=== PATIENT | male | born 1980 | race Caucasian/White ===

== ENCOUNTER 2016-06-22 08:06 | Observation (INO) | payer SELFPAY ==
[~2016-06-22] VITALS: Ht 180.3 cm; Wt 77.3 kg
[2016-06-22 08:11] VITALS: BP 146/92; PULSE 117; RESP 14; O2SAT 97
[2016-06-22] MEDS ORDERED: 0.9% Sodium Chloride 1,000 ML IV SCH (08:45)
[2016-06-22] MEDS ORDERED: Ondansetron 2 mg/mL 2 mL Inj IVPUSH ONE ×2 (08:45→12:10)
[2016-06-22 08:59] VITALS: PULSE 104; RESP 20; O2SAT 94
[2016-06-22 09:12] LABS: BASOPHILS % (AUTO) 0.2 % (0-3); EOSINOPHILS % (AUTO) 0.2 % (0-5); MONOCYTES % (AUTO) 8.6 % (4-12); Mean Corpuscular Hemoglobin 27.5 pg (27.0-35.0); Mean Corpuscular Volume 84.2 fL (81-100); NEUTROPHILS % (AUTO) 45.6 % (40-74); Platelet Count 261 bil/L (150-400)
--- NOTE | 2016-06-22 09:15 | ED.REPORT ---
HPI-Abd Pain M Under 38 Date of Service Jun 22, 2016 ED Provider: Slava Perez MD This is a 36 year old male with a history of inguinal hernia presenting to the ED with acute epigastric abdominal pain that began 2 days ago. Pt reports sudden -onset abdominal pain while in [place]. He soon developed nausea associated with hematemesis described as streaking. Also reports diarrhea with blood streaking. Pt was admitted to a hospital in [place] for pain and nausea control and returned to the [facility] today morning. He was not given antibiotics during his stay there. Hematemesis and diarrhea persists with 3-4 episodes of hematemesis per day. Last PO intake was half of a sandwich yesterday. He adds that the sandwich had peanuts in it which he is allergic to. Reports some mild itching but denies tongue swelling, throat swelling, or difficulty breathing. Denies fever, chills, dysuria, or constipation at this time. Nursing Notes Stated Complaint: VOMITING BLOOD/FOOD ALLERGY Chief Complaint: Male Abdominal Pain Nursing Notes Reviewed: Yes Allergies: Coded Allergies: Contrast Media (Verified Allergy, Mild, itching, 06/22/16) prochlorperazine (Verified Adverse Reaction, Intermediate, dystonia, ) No Active Prescriptions or Reported Meds General Time Seen by MD: 09:12 Chief Complaint Abdominal pain Hx Obtained From: Patient Arrived By: Walk-in Sudden in Onset?: Yes Onset Occurred: 2 days ago Symptom Duration: Since onset Location: : Diffuse: Epigastric Severity: Current: Moderate Pertinent Negative: Pt denies other symptoms Recent Healthcare: Recent doctor visit Similar Sx Previous: No Past Medical History Past Medical History Hx inguinal hernia Past Surgical History Inguinal hernia repair Ambulatory Status Independent Review of Systems Constitutional: Denies: Chills, Fever GI: Reports: Abdominal pain, Diarrhea, Hematemesis, Hematochezia, Nausea, Vomiting Male: Denies Dysuria Complete sys rev & neg: except as marked. Neurologic: Denies: Headache Physical Exam Initial Vital Signs Vital Signs (First) Date Time Temp Pulse Resp B/P Pulse Ox O2 Delivery O2 Flow Rate FiO2 06/22/16 08:11 36.1 117 14 146/92 97 Room Air Initial VS: Reviewed Head / Eyes: Atraumatic, Normocephalic, PERRL ENT: Mucous membranes moist, Conjunctiva normal, No scleral icterus Neck: Supple, Non-tender, Full range of motion Extremities: Vascular intact, Neuro intact, No swelling, No tenderness Skin: Warm, Dry, No cyanosis Neurologic: Alert, Oriented, Nonfocal Psychiatric: Mood/affect normal, Behavior normal, Normal thought content General/Constitutional: Awake, Alert Respiratory / Chest: Breath sounds NL, Breath sounds = bilat, No respiratory distress, No rales, No rhonchi, No wheezing, No stridor Cardiovascular: Heart rate NL, Regular rhythm, Heart sounds NL, Peripheral circulation NL Abdomen: Soft, BS normoactive Tenderness/Guarding/Rebound: Positive: Tender diffuse Back: Inspection NL, Non-tender, No CVA tenderness Rectum / Perineum: No gross blood, No hemorrhoids Mildly guaiac positive. Interpretation & Diagnostics CT ABD PELVIS IMPRESSION: 1. No CT evidence of appendicitis. Source of right lower quadrant pain is not seen. 2. Scattered very small calcifications and faint calcifications involving the collecting system and renal parenchyma bilaterally, but without associated hydronephrosis or hydroureter. Dictated by: Lane Machado M.D. on 06/22/2016 at 10:00 Approved by: Lane Machado M.D. on 06/22/2016 at 10:00 Lab Results Interpretation Result Diagram: 06/22/16 0835 06/22/16 0835 Test 06/22/16 08:35 06/22/16 09:50 06/22/16 10:25 White Blood Count 4.7th/mm3 (3.8-10.1) Red Blood Count 4.80mil/mm3 (4.40-5.80) Hemoglobin 13.2g/dL (13.8-17.2) Hematocrit 40.4% (41.0-50.0) Mean Corpuscular Volume 84.2fL (81-100) Mean Corpuscular Hemoglobin 27.5pg (27.0-35.0) Mean Corpuscular Hemoglobin Concent 32.7% (32.0-37.0) Red Cell Distribution Width 13.2% (12.3-15.4) Platelet Count 261bil/L (150-400) Neutrophils (%) (Auto) 45.6% (40-74) Lymphocytes (%) (Auto) 45.0% (14-46) Monocytes (%) (Auto) 8.6% (4-12) Eosinophils (%) (Auto) 0.2% (0-5) Basophils (%) (Auto) 0.2% (0-3) Sodium Level 142mEq/L (134-144) Potassium Level 3.7mEq/L (3.5-5.2) Chloride Level 104mEq/L (97-108) Carbon Dioxide Level 23mmol/L (18-29) Blood Urea Nitrogen 15mg/dL (6-20) Creatinine 0.82mg/dL (0.76-1.27) Estimat Glomerular Filtration Rate 112mL/min (>59) Glucose Level 90mg/dL (60-99) Calcium Level 8.8mg/dL (8.5-10.1) Magnesium Level 2.1mg/dL (1.6-2.6) Total Bilirubin 0.3mg/dL (0.0-1.2) Aspartate Amino Transf (AST/SGOT) 12U/L (0-50) Alanine Aminotransferase (ALT/SGPT) 6U/L (0-44) Alkaline Phosphatase 51U/L (25-150) Total Protein 7.1g/dL (6.4-8.4) Albumin 3.9g/dL (3.4-5.0) Lipase 16U/L (13-60) Lactic Acid Level 1.8mmol/L (0.4-2.0) Urine Color Straw (YELLOW) Urine Appearance Hazy (CLEAR,HAZY) Urine pH 6.0 (5.0-8.0) Urine Specific [place] 1.015 (1.003-1.035) Urine Protein Negativemg/dL (NEG,TRACE) Urine Glucose (UA) Negativemg/dL (NEGATIVE) Urine Ketones Negativemg/dL (NEGATIVE) Urine Occult Blood Negative (NEGATIVE) Urine Nitrite Negative (NEGATIVE) Urine Bilirubin Negative (NEGATIVE) Urine Urobilinogen Normalmg/dL (NORMAL) Urine Leukocyte Esterase Negative (NEGATIVE) Urine RBC 0-2/hpf (0-2) Urine WBC 0-5/hpf (0-5) Urine Epithelial Cells Occasional/hpf (NONE-MOD) Urine Crystals None seen (NONE SEEN) Urine Bacteria None/hpf (NONE-FEW) Urine Hyaline Casts None/lpf (NONE) Urine Granular Casts None seen (NONE SEEN) Urine Waxy Casts None seen (NONE SEEN) Urine Red Blood Cell Casts None seen (NONE SEEN) Urine White Blood Cell Casts None seen (NONE SEEN) Urine Mucus None seen (None Seen) Urine Trichomonas None seen (NONE SEEN) Urine Yeast None (NONE SEEN) Urinalysis Comment None Urine Culture Reflexed Not indicated X-Ray Chest Interpretation Chest Xray Interpretation: IMPRESSION: No acute cardiopulmonary disease process. Dictated by: Sobia Herman MD, PhD on 06/22/2016 at 9:48 Approved by: Sobia Herman MD, PhD on 06/22/2016 at 9:48 Re-Eval/Medical Decision Med Decision/Clinical Course 36-year-old male presenting complaining of hematemesis and diarrhea with blood times several days after a trip to [place]. Also complaining of right lower quadrant pain times several days. He was hospitalized in [place] with pain control and no definitive diagnosis. Return state complaining of right lower quadrant pain with hematemesis and diarrhea as above. Vital signs stable. Labs unremarkable. Patient with significant right lower quadrant pain with CT showing no evidence of appendicitis. He was giving numerous doses of Dilaudid with minimal improvement in pain control. He reported some episodes of emesis while we were not the room but none were witnessed. He was guaiac positive. Stool studies pending. Patient with abdominal pain refractory to pain medications and emesis refractory to antiemetics. Will be admitted for pain control. Discussed with hospitalist, Dr Eldridge, who accepts admission. Re-Evaluation/Progress #1: Time of Eval: 11:57 Re-Evaluation/Progress Note: Pt re-checked. No episodes of diarrhea or emesis in the ED. Nausea is improved with Zofran but is still present. Pain persists and is unchanged. Discussed normal lab and imaging results. Plan for re-evaluation after pain and anti-nausea medication. Re-Evaluation/Progress #2: Time of Eval: 13:13 Re-Evaluation/Progress Note: Unable to tolerate PO, plan for admission. Consultation #1: Referral / Consult Name: Letty Ervin MD Call Returned at: 12:55 Market Development Specialist: Agrees with eval, Agrees with plan Note: Consult with GI Consultation #2: Referral / Consult Name: Uriel Eldridge MD Consulted With: Hospitalist Call Returned at: 13:44 Market Development Specialist: Accepts admit Counseled Regarding: Diagnosis, Lab results, Need for follow-up, Need for admission Patient Discharge & Departure Primary Impression: Generalized abdominal pain Additional Impression: Vomiting Vomiting type: unspecified Vomiting Intractability: non-intractable Nausea presence: with nausea Qualified Code: R11.2 - Nausea with vomiting, unspecified Disposition: ADMITTED TO HOSPITAL Discharge Condition All VS Reviewed: Yes Condition: Stable Patient Instructions: Gastroenteritis (ED) Scribe Attestation Portions of this note were transcribed by Melissa Machado. I, Dr. Perez personally performed the history, physical exam and medical decision-making; I reviewed and confirmed the accuracy of the information in the transcribed note. Signed by: Melissa Machado. 06/22/2015, 0930. Slava Perez MD Jun 22, 2016 09:15 MELISSA MACHADO Jun 22, 2016 09:27
[2016-06-22] MEDS ORDERED: 0.9% Sodium Chloride 1,000 ML IV ONE ×2 (09:24→12:10)
[2016-06-22] MEDS ORDERED: Ondansetron 2 mg/mL 2 mL Inj IVPUSH PRN (09:25)
[2016-06-22] MEDS: HYDROmorphone 1 mg/mL Inj IVPUSH PRN ×6 (09:32→22:58)
--- NOTE | 2016-06-22 09:50 | DRSVH ---
PROCEDURE: X-RAY CHEST ONE VIEW, PORTABLE ([id number]) INDICATIONS: cough TECHNIQUE: One view of the chest was acquired. COMPARISON: None. FINDINGS: Surgical changes and devices: None. Lungs and pleura: No pleural effusions or pneumothorax. Lungs are clear. Mediastinum: Mediastinal contours appear normal. Heart size is normal. Bones and chest wall: No suspicious bony lesions. Overlying soft tissues appear unremarkable. IMPRESSION: No acute cardiopulmonary disease process. Dictated by: Sobia Herman MD, PhD on 06/22/2016 at 9:48 Approved by: Sobia Herman MD, PhD on 06/22/2016 at 9:48
--- NOTE | 2016-06-22 10:04 | DRSVH ---
PROCEDURE: CT ABDOMEN AND PELVIS WITHOUT CONTRAST ([id number]) INDICATIONS: RLQ pain TECHNIQUE: Noncontrast 5 mm thick sections acquired from the diaphragms to the symphysis. 5 mm coronal and sagi ttal reformats were then performed. For radiation dose reduction, the following was used: automated exposure control, adjustment of mA and/or kV according to patient size. Heart history of allergic r eaction to contrast, and the study is performed without. COMPARISON: None. FINDINGS: Image quality: Excellent. ABDOMEN: Lung bases: Lung bases are clear. Heart size is normal. Solid organs: Liver and spleen are normal in size. Gallbladder appears normal. Pancreas is normal in contours. No adrenal nodules. Kidneys are normal in size, without hydronephrosis but there is a pattern of scattered small faint calcifications within the collecting systems and medullary margins o f each kidney, without associated hydronephrosis, as an incidental finding. Peritoneum and bowel: Unenhanced bowel loops demonstrate normal wall thickness and caliber. No free fluid or air. Nodes and vessels: No retroperitoneal or mesenteric adenopathy by size criteria. Aorta and inferior vena cava are normal in caliber. Miscellaneous: No ventral hernias. PELVIS: Genitourinary: Bladder wall thickness is normal. Miscellaneous: No inguinal hernias or adenopathy but there is evidence of prior left herniorrhaphy b y the pattern of surgical clips present.. No CT evidence of appendicitis. Bones: No suspicious bony lesions. No vertebral body compression fractures. IMPRESSION: 1. No CT evidence of appendicitis. Source of right lower quadrant pain is not seen. 2. Scattered very small calcifications and faint calcifications involving the collecting system and renal parenchyma bilaterally, but without associated hydronephrosis or hydroureter. Dictated by: Lane Machado M.D. on 06/22/2016 at 10:00 Approved by: Lane Machado M.D. on 06/22/2016 at 10:00
[2016-06-22] MEDS ORDERED: MethylprednisoLONE Sodium Succinate 62.5 mg/mL 2 mL Inj IVPUSH ONE (10:25)
[2016-06-22 11:16] LABS: APPEARANCE,URINE HAZY (CLEAR,HAZY); COLOR,URINE STRAW (YELLOW); OCCULT BLOOD,URINE NEGATIVE (NEGATIVE); UROBILINOGEN,URINE NORMAL (NORMAL)
[2016-06-22] MEDS ORDERED: HYDROmorphone 1 mg/mL Inj IVPUSH ONE (12:10)
[2016-06-22 13:13] VITALS: BP 141/79; PULSE 100; O2SAT 96
[2016-06-22] MEDS ORDERED: Alum-Mag Hydrox-Simeth 30 mL Suspension PO PRN (14:00)
[2016-06-22 16:28] VITALS: BP 128/57; PULSE 75; O2SAT 94
[2016-06-22] MEDS: 0.9% Sodium Chloride 1,000 ML IV SCH (16:50)
[2016-06-22] MEDS ORDERED: Polyethylene Glycol (PEG) 17 Gm Powder PO PRN (16:50)
[2016-06-22] MEDS: Sucralfate 100 mg/mL 10 mL Suspension PO SCH ×2 (17:00→22:59)
[2016-06-22] MEDS ORDERED: SERT50TA PO (17:41)
[2016-06-22] MEDS: HYDROcodone-APAP 5-325 mg Tablet PO PRN (18:46)
--- NOTE | 2016-06-22 19:27 | NUR ---
Arrival to floor Admission assessment and med rec completed in ER by admit RN. Pt arrived from ER via gurney, transferred to bed independently. White board updated with plan and discussed including fluids and NPO status upon introduction with this RN. Pt reported nausea and pain and requested to know what medications he was allowed and when, RN excused self from room to retrieve IV fluids and would come back with that information. Retuned to room with fluids, Zofran and Vicodin in hand. Discussed meds from eMAR that were available (sucralfate, zofran, morphine, vicodin), pt demanding to talk with the doctor again because "we are not allowed to let him be in so much pain" and "I just want someone to tell me 'I'm sorry you feel bad, let me help you". Pt unreceptive to RNs recall of the last 15mins. Commented "mother works at [employer] and when she listens on speakerphone when everybody talks to me she can't believe what we say". Initiated IVF and admin oral Vicodin with small amount ice water d/t NPO status. While initiating fluids pt remained in RNs peripheral vision and pt lifted hand toward opposite wall with pointer finger out and thumb up in a finger gun pose and made a total of 3 pew pew noises with 3 shanks of the hand while saying unfriendly remarks about all of the staff here. RN asked pt if I should be reporting "what you just did?" Pt claimed "you weren't looking, you didn't see anything" then "I was singing and I can sing anywhere I want". Pt finished drinking the water to take his meds "You couldn't even put water in the cup" Reminded pt we talked about his NPO status, pt denied recollection. Attempted to throw cup with ice into trash, missed and it landed on floor, "oops, I missed". RN exited room at that time.
[2016-06-22] MEDS ORDERED: ALPR2TAB6 PO (20:27)
[2016-06-22] MEDS: Ondansetron 2 mg/mL 2 mL Inj IVPUSH PRN (20:52)
[2016-06-22] MEDS: metroNIDAZOLE Inj 500 MG in IV Premix 1 EACH IV SCH (20:53)
[2016-06-22 21:51] VITALS: BP 128/77; PULSE 76; RESP 20; O2SAT 96
--- NOTE | 2016-06-22 21:54 | NUR ---
Patient behavior Entered patient's room at beginning of shift, around 1999. Patient was calm, but verbally expressed frustration with "lack of care" he has experienced with this admit, but mostly when he was in the ED. Actively listened to patient for about 20 minutes, discussed medications that worked and ones that are ineffective. Apologized to patient for the experience he had earlier today and for the pain he is having. Called MD and discussed medications, some were changed. Updated patient on new orders. Patient has been appreciative of interventions and medication changes. Medication schedule written on board for patient to be informed. Intentional rounding to be performed overnight.
[2016-06-23] MEDS: Ondansetron 2 mg/mL 2 mL Inj IVPUSH PRN ×4 (00:58→22:30)
[2016-06-23] MEDS: HYDROmorphone 1 mg/mL Inj IVPUSH PRN ×11 (00:58→22:30)
[2016-06-23] MEDS: 0.9% Sodium Chloride 1,000 ML IV SCH ×3 (04:29→22:50)
[2016-06-23 04:48] VITALS: BP 129/77; PULSE 54; RESP 18; O2SAT 96
[2016-06-23 07:05] LABS: BASOPHILS % (AUTO) 0 % (0-3); EOSINOPHILS % (AUTO) 0 % (0-5); MONOCYTES % (AUTO) 10.3 % (4-12); Mean Corpuscular Hemoglobin 27.1 pg (27.0-35.0); Mean Corpuscular Volume 83.5 fL (81-100); NEUTROPHILS % (AUTO) 65.9 % (40-74); Platelet Count 322 bil/L (150-400)
--- NOTE | 2016-06-23 07:26 | PCM.HPMED ---
Subjective Date of Service Jun 22, 2016 Primary Provider: Admitting Physician: Primary Care Physician: Zain Attending Physician: Chief Complaint: abdominal pain History of Present Illness: Patient is a 36 year old male with no relevent past medical history that is presenting with a 4 day history of generalized abdominal pain and nausea/ vomiting. Patient was on a family trip to [place] when he suddenly developed acute abdominal pain with continual vomiting. He attributes this to some food that he ingested that no one else did. He went to the hospital in [place], and all they could offer him was nausea medication and pain medication. Patient continued to be symptomatic the entire trip and was had the symptoms for the next three days. Eventually the vomiting and diarrhea led to occasional blood streaks in the vomitus and streaks of blood in the stool. Patient upon landing came to the hospital for evaluation. Review of Systems: Constitutional: Denies: Chills, Fever GI: Reports: Abdominal pain, Diarrhea, Hematemesis, Hematochezia, Nausea, Vomiting Male: Denies Dysuria Complete sys rev & neg: except as marked. Neurologic: Denies: Headache Allergies Coded Allergies: metoclopramide (Verified Allergy, Severe, 06/22/16) dystonia peanut (Verified Allergy, Severe, Anaphylaxis, 06/22/16) morphine (Verified Allergy, Intermediate, Rash,Itching,, 06/22/16) Contrast Media (Verified Allergy, Mild, itching, 06/22/16) prochlorperazine (Verified Adverse Reaction, Intermediate, dystonia, ) Home Medications none PMH none Surgical History left inguinal hernia surgery Family History noncontributory Social History Hx Alcohol Use: Yes (Occassionally) Hx Substance Use: No Exam Vital Signs Vital Sign - Last Date Time Temp Pulse Resp B/P Pulse Ox O2 Delivery O2 Flow Rate FiO2 06/22/16 16:28 75 128/57 94 Room Air 06/22/16 08:59 20 06/22/16 08:11 36.1 Exam General/Constitutional: Awake, Alert Respiratory / Chest: Breath sounds NL, Breath sounds = bilat, No respiratory distress, No rales, No rhonchi, No wheezing, No stridor Cardiovascular: Heart rate NL, Regular rhythm, Heart sounds NL, Peripheral circulation NL Abdomen: Soft, BS normoactive Tenderness/Guarding/Rebound: Positive: Tender diffuse Back: Inspection NL, Non-tender, No CVA tenderness Rectum / Perineum: No gross blood, No hemorrhoids Guiac positive Lab and Diagnostics Result Diagram: 06/22/1683406/22/16834 X-Rays, CTs and MRIs CT ABD PELVIS IMPRESSION: 1. No CT evidence of appendicitis. Source of right lower quadrant pain is not seen. 2. Scattered very small calcifications and faint calcifications involving the collecting system and renal parenchyma bilaterally, but without associated hydronephrosis or hydroureter. Dictated by: Lane Machado M.D. on 06/22/2016 at 10:00 Approved by: Lane Machado M.D. on 06/22/2016 at 10:00 Lab Results Interpretation Result Diagram: 06/22/1683406/22/16834 Assessment & Plan Patient is a 36 year old male with no relevent past medical history that is presenting with acute onset nausea and vomiting with accompanying abdominal pain. Gastroenteritis - Given presentation of symptoms and travel will treat for possible protozoal infection - will adequately hydrate via ns @ 100 ml/hr - will treat with metronidazole 500 mg bid - stool culture and wbc - will monitor for nausea and vomiting dvt ppx via lovenox gi ppx via carafate and ppi anticipated stay 1 day from home Uriel Eldridge MD Jun 22, 2016 16:54
[2016-06-23] MEDS: Sucralfate 100 mg/mL 10 mL Suspension PO SCH ×4 (07:47→21:14)
[2016-06-23] MEDS: metroNIDAZOLE Inj 500 MG in IV Premix 1 EACH IV SCH ×2 (07:50→21:14)
--- NOTE | 2016-06-23 09:00 | NUR ---
Social Work: Screening Data: Pt is a 36 y/o male admitted for ABD pain, vomiting. Pt's PCP is not listed, pt's insurance is self pay. DATA MANAGEMENT spoke with pt at bedside, he states that his health insurance starts in 30 days but that his employer states that they will retroactively cover this hospitalization. DATA MANAGEMENT left the fidel care application with pt in case this agreement falls through for pt to request a sliding fee scale for his hospital bills. Pt agreeable. Pt asked if his home medications could be filled at the hospital before d/c. DATA MANAGEMENT states she will mention this request to the hospitalist closer to d/c. Assessment: Pt who is independent at baseline. Plan: Pt will d/c home via POV when medically stable. Pt requesting medications needed at d/c be filled at hospital pharmacy. DATA MANAGEMENT will continue to follow. VIRGINIE Mckoy
[2016-06-23] MEDS: HYDROcodone-APAP 5-325 mg Tablet PO PRN ×2 (09:07→17:45)
[2016-06-23 10:54] VITALS: BP 123/78; PULSE 58; RESP 20; O2SAT 97
[2016-06-23 13:32] VITALS: BP 122/79; PULSE 64; RESP 18; O2SAT 99
--- NOTE | 2016-06-23 16:05 | NUR ---
Behavior Entered pt's room at request of primary RN with intention to hang new bag IVF's. Pt requested dilaudid. Review of eMAR indicates it is time for dilaudid. While RN looking at eMAR, pt appeared to fall asleep and then began mumbling to the characters on TV. RN asked pt who he was talking to, pt then started talking about TV show. Informed pt that it was indeed time for dilaudid and I would return with a dose after speaking w/ primary RN. Pt became angry and began shouting. "Why do you have to ask him? You don't need to be rude!" Did not seem to want primary RN informed of his request for dilaudid. Left room and updated hospitalist and primary RN, who will address need for pain meds soon.
--- NOTE | 2016-06-23 19:20 | NUR ---
behavior Pt was calm during shift except when discussing his pain medication amount and regiment. PT consistently asked for more pain medications and increased frequencies including Benadryl. Pt also requested that Benadryl be pushed "fast", I told pt that I could not do that and that it was not best practice to administer drugs in the manner. Pt stated that other [facility] would do it that way and that his mother who is a surgeon at [facility] said it was ok. Spoke with who offered to place the pt on a Benadryl drip which pt declined. Pt remain calm as long as his PRN meds were administered on time and press call light to remind RN every time.
[2016-06-23] MEDS ORDERED: PEG/Electrolytes 4,000 mL Solution PO SCH (21:00)
[2016-06-23 21:16] VITALS: BP 130/81; PULSE 66; RESP 18; O2SAT 95
--- NOTE | 2016-06-23 23:02 | CONS ---
[address] [address] CONSULTATION REPORT PATIENT: HUDSON PARRA : 1980 MR#: [id number] ADMIT: 06/22/2016 JOB ID: [id number] DATE OF SERVICE: 06/23/[address] Eldridge for this timely consult. REASON FOR CONSULTATION: Nausea, vomiting and lower abdominal pain and recent travel to [place]. HISTORY OF PRESENT ILLNESS: The patient is a 36-year-old gentleman who reports he is basically healthy. He was in [facility] last week celebrating his sister's graduation from college with his mother and siblings. He reports that he spent six days in [place] through Monday the and had felt fine. He had been enjoying the usual tourist activities including spending time on the beach, walking through the streets, and eating in various both trendy locales well as street vendors. On June 17, he developed acute nausea and prolific vomiting. This was associated with some diarrhea as well, but the main feature of this illness was agonizing subumbilical pain. This pain he described as almost unbearable. Because he could not keep anything down due to the intractable vomiting and was uncertain what to do with this out of control pain, he presented to and was admitted to a hospital in [facility]. He spent four days there where he had various lab studies done though he is unaware of the results of any of these tests. He states that he was given antibiotics as well as other medicines to reduce vomiting, control nausea and so forth. Eventually, he was well enough to travel and returned to the [facility] via [place] to [place] within the past 48 hours. He then came to this hospital as he lives and works in the [facility]. He was admitted at that time because of his severe pain and concern about a variety of issues including parasitic infections or appendicitis. Interestingly, the patient states throughout this six days of abdominal pain, vomiting and sometimes diarrhea, he had no fevers, chills, or sweats whatsoever. As his nausea and vomiting has continued, the vomitus is sometimes blood-streaked which has caused him to "freak out." Since admission, the patient has been receiving hydration as well as pain meds and antiemetics. He reports the pain meds have been insufficient and he continues to be in severe pain. He has been evaluated by GI, though as of yet, I do not see the transcribed note in the chart and he apparently is scheduled for upper and/or lower endoscopy tomorrow. PAST MEDICAL HISTORY: Said to be none though he has had a left inguinal hernia repair. SOCIAL HISTORY: The patient reports he is a nonsmoker who drinks alcohol only on occasional pay days or [employer] football games. He denies substance abuse. FAMILY HISTORY: Negative for TB or any other related disease. Of interest, the patient states that his entire family was palling around [facility] together, eating exactly the same foods and no one else became sick. REVIEW OF SYSTEMS: Was done in its entirety. The patient states he has no headache, no visual change. He has had no sore throat. with this, no rhinorrhea, coughing or sneezing. He has had no chest pain or cough whatsoever. His main symptoms have strictly been recurrent severe emesis which is only controlled by heavy doses of antiemetics in association with this subumbilical severe constant pain. He has had the diarrhea as mentioned, but that seems to have subsided since [place] and he has not had a bowel movement actually since he has been in the hospital in the past 24 hours or so. He has had no urinary symptoms. No burning, urgency, dysuria. No swelling of the joints and no skin rash. PHYSICAL EXAMINATION: Reveals a healthy-appearing young man in no acute distress. Temp 36.9, pulse 66, respiratory rate 18, blood pressure 130/81. He has had no fever during his 24 hours here in the hospital. He is certainly in no acute distress. He is alert, oriented and neurologically intact. Head without trauma. Eyes without conjunctivitis or scleral icterus. Nose normal. Oral cavity without pharyngitis, thrush or hairy leukoplakia. Teeth are in good repair. Neck is supple and without adenopathy. Lungs are clear. Cardiac tones: Regular rate and rhythm without murmur. Patient's abdomen is notable for normal bowel sounds. There is no organomegaly, but the patient does have a bit of tenderness in the area between the umbilicus and the symphysis pubis. No Royal catheter. No evidence for skin rash. His extremities are well muscled and without evidence of cellulitis or edema. He is neurologically intact with good peripheral pulses. LABORATORIES: Include white count 4700 and 6900. Totally normal diff on both measurements. His hematocrit is 33 though on the 2nd measurement done this morning. His creatinine 0.67. His LFTs are entirely normal. Albumin slightly low at 3.5. Lipase 16. Urinalysis completely negative. Micro studies have not been done. A stool sample was ordered though I am not certain for what, but it has not been collected as the patient has not produced any stool. IMAGING: Studies include a chest x-ray done yesterday in the ED which was clear and an abdominal CT scan which shows no appendicitis and no source for his lower abdominal pain. IMPRESSION: This is an odd case of a gentleman who spent last week in [facility] with his family. He reports that on the in [place] which also happened to be June 17, he developed the onset of intractable nausea and vomiting associated with severe lower abdominal pain and some diarrhea. Over a period of four days in a [facility] hospital and now one day in our hospital, the patient has continued to have what he describes as severe vomiting which is now sometimes mixed with blood. This vomiting and nausea is only suppressed by antiemetic agents. In addition, he reports severe lower abdominal pain to the point he requires narcotics and is actively campaigning for higher and higher doses of narcotics. This is all occurring in a patient who appears nontoxic at this point and certainly does not look infected. Infectious disease differential diagnosis is a bit indistinct here. The patient's nausea and vomiting sound like Norovirus or some similar agent, but it has persisted now for almost a week which would be quite unusual. The severe abdominal pain also does not go along with typical agents of viral gastroenteritis. The lower abdominal pain could be a sign of a parasitic infection such as Cyclospora or amebiasis, but the patient really does not have much in the way of diarrhea at this point. Shigella, salmonella, Campylobacter and Yersinia could also produce such a picture, but the amount of nausea and vomiting he has, which really outweighs the minimal diarrhea, would not fit well for these organisms. It is also possible, of course, the patient has no infection at all but it seems odd that a 36-year-old, uninfected young man on holiday in [facility] would suddenly develop intractable nausea and vomiting associated with severe lower abdominal pain to the point that he would be admitted to a [facility] hospital for several days and then emergently returned to the [place] RECOMMENDATIONS: 1. I agree completely with the endoscopies planned for tomorrow. 2. As soon as a stool sample presents itself, and given the fact he is getting a gastrointestinal prep for his endoscopy that should not be long, it should be sent for the stool multiplex PCR. 3. We may need additional studies on the patient's stool as we go forward, but I think we will wait a bit and see what is found during the endoscopy or endoscopies planned for tomorrow. 4. Human immunodeficiency virus and hepatitis C are needed in this young gentleman who reports he has never been tested for either of these problems. 5. Repeat procalcitonin will be checked as well though I certainly do not feel this patient is septic or toxic in any way but high procalcitonin level would, of course, force us to rethink the case. DATE OF SERVICE: MTDD
[2016-06-23] MEDS ORDERED: Pantoprazole 4 mg/mL 10 mL Inj IVPUSH SCH (23:15)
--- NOTE | 2016-06-23 23:24 | PCM.PNMED ---
Subjective Date of Service Jun 23, 2016 Subjective Patient continues to complain of abdominal pain. Initially he had complained of nausea vomiting and diarrhea while in [place] but has not had a stool here for the nurses to send for stool studies that were ordered on admission. Patient states that his primary complaint now is abdominal pain that he needs more Dilaudid even though it is getting 1 mg IV every 2 hours and he needs more Benadryl even though he is getting 25 mg IV every 6 hours and he is asking the nurse Porfirio to push it rather than having it in a bag and run intravenously. Patient stated that his mother is a physician at [facility] in [place] but refused to give me her name that I could discuss the case with her as she was traveling with the patient in [place]. The patient also refused to give the GI weight loss consultant team the name of the hospital in [place] that he was at. Even though the GI weight loss consultant team explained to him that the records from [place] would be useful in the evaluation and treatment of his current condition.. Exam Vital Signs Vital Sign - Last Date Time Temp Pulse Resp B/P Pulse Ox O2 Delivery O2 Flow Rate FiO2 06/23/16 21:16 36.9 66 18 130/81 95 Room Air Intake and Output 06/22/16 06/22/16 06/23/16 Cumulative From/Thru 15:00 23:00 07:00 06/22/16 08:11 - 06/23/16 04:31 Intake Total 2000 ml 1023 ml 3023 ml Output Total 1350 ml 1350 ml Balance 650 ml 1023 ml 1673 ml IV Total 2000 ml 1023 ml 3023 ml Output Urine Total 1350 ml 1350 ml # Voids 2 2 Exam General: Patient is in no apparent distress laying supine in bed somewhat somnolent. HEENT: Head is atraumatic normocephalic. Eyes: Pupils are equally round and pinpoint but still reactive to light and accommodation. Extraocular muscles are intact. Sclera are white anicteric. Subconjunctival mucosa is pink. Ears and nose are unremarkable. Oropharynx: There is no mucosal lesions, there is no thrush, there is no pharyngitis. Neck: Is supple, there are no nodes, or masses, or tenderness. Chest: Is clear to auscultation and percussion. There are no rales, rhonchi, wheezes or rubs. Heart: Rate, rhythm is regular. There is no murmur, rub or gallop. Abdomen: Good bowel sounds are present. Abdomen is soft, with nonspecific subjective tenderness, there was no guarding or rebound tenderness. There was no organomegaly or masses were appreciated. Extremities: Are symmetrical and well perfused. There is no edema, there is no cellulitis, no rash. Neurologic: There are no focal neurological deficits. Cranial nerves II through XII are intact. There are no sensory or motor deficits. Psychiatric: Patients mood is calm and shows no sign of agitation at this time. However, he was petitioning for more than more analgesic medication. Genital: Deferred Rectal: Deferred Lab and Diagnostics Result Diagram: 06/23/1663406/23/16634 X-Rays, CTs and MRIs CT ABD PELVIS IMPRESSION: 1. No CT evidence of appendicitis. Source of right lower quadrant pain is not seen. 2. Scattered very small calcifications and faint calcifications involving the collecting system and renal parenchyma bilaterally, but without associated hydronephrosis or hydroureter. Dictated by: Lane Machado M.D. on 06/22/2016 at 10:00 Approved by: Lane Machado M.D. on 06/22/2016 at 10:00 Lab Results Interpretation Result Diagram: 06/22/1683406/22/16834 Assessment & Plan Patient is a 36 year old male with no relevent past medical history that is presenting with acute onset nausea and vomiting with accompanying abdominal pain. Gastroenteritis - Given presentation of symptoms and travel will treat for possible protozoal infection - will continue to adequately hydrate via ns @ 100 ml/hr - will treat with metronidazole 500 mg bid - stool culture and wbc - will monitor for nausea and vomiting dvt ppx contraindicated at this time gi ppx will give Protonx Plan patient has no stool yet to send for studies. I have consulted gastroenterology and their recommendations are to perform endoscopy and colonoscopy. Their help is appreciated. I have consulted infectious diseases patient has just spent several days in [place] before becoming ill Dr. Wagner was kind enough to see the patient and his recommendations are as follows: "IMPRESSION: This is an odd case of a gentleman who spent last week in [facility] with his family. He reports that on the day in [place] which also happened to be June 17, he developed the onset of intractable nausea and vomiting associated with severe lower abdominal pain and some diarrhea. Over a period of four days in a [facility] hospital and now one day in our hospital, the patient has continued to have what he describes as severe vomiting which is now sometimes mixed with blood. This vomiting and nausea is only suppressed by antiemetic agents. In addition, he reports severe lower abdominal pain to the point he requires narcotics and is actively campaigning for higher and higher doses of narcotics. This is all occurring in a patient who appears nontoxic at this point and certainly does not look infected. Infectious disease differential diagnosis is a bit indistinct here. The patient's nausea and vomiting sound like Norovirus or some similar agent, but it has persisted now for almost a week which would be quite unusual. The severe abdominal pain also does not go along with typical agents of viral gastroenteritis. The lower abdominal pain could be a sign of a parasitic infection such as Cyclospora or amebiasis, but the patient really does not have much in the way of diarrhea at this point. Shigella, salmonella, Campylobacter and Yersinia could also produce such a picture, but the amount of nausea and vomiting he has, which really outweighs the minimal diarrhea, would not fit well for these organisms. It is also possible, of course, the patient has no infection at all but it seems odd that a 36-year-old, uninfected young man on holiday in [facility] would suddenly develop intractable nausea and vomiting associated with severe lower abdominal pain to the point that he would be admitted to a [facility] hospital for several days and then emergently returned to the [place] RECOMMENDATIONS: 1. I agree completely with the endoscopies planned for tomorrow. 2. As soon as a stool sample presents itself, and given the fact he is getting a gastrointestinal prep for his endoscopy that should not be long, it should be sent for the stool multiplex PCR. 3. We may need additional studies on the patient's stool as we go forward, but I think we will wait a bit and see what is found during the endoscopy or endoscopies planned for tomorrow. 4. Human immunodeficiency virus and hepatitis C are in this young gentleman who reports he has never been tested for either of these problems. 5. Repeat procalcitonin will be checked as well though I certainly do not feel this patient is septic or toxic in any way but high procalcitonin level would, of course, force us to rethink the case." ^^^ Infectious disease and GI consult and help are appreciated and will follow the recommendations. Pain Evaluation: Adequate Pain Control GI Prophylaxis: Proton Pump Inhibitor VTE Prophylaxis: Other (patient is young and quite active in the room therefore SCDs were not applied. Due to presumed GI bleeding anticoagulation was also contraindicated.) Resuscitation Status: CPR: Attempt Resuscitation SamanthaDavid MD Jun 23, 2016 23:24
[2016-06-24] MEDS: HYDROmorphone 1 mg/mL Inj IVPUSH PRN ×3 (00:33→04:46)
--- NOTE | 2016-06-24 04:25 | NUR ---
Medications: pt anxious about prn mediations, stating RN bringing medications late, discussed these are not scheduled medications, so if he is sleeping and appears to be comfortable meds will not be administered, and that he is welcome to call if he is in pain. pt upset about his medications stating meds hadn't been given, although they already had been. pt using call light frequently to ask for medications. hospitalist notified about pt's frequent request for pain meds, no new orders. will continue to monitor. VSS. Addendum: 06/24/16 at 0525 by ROSHAN ARMENTA RN RN called to room, pt stating 10/10 abd pain. pt lying in bed watching TV. pt c/o an allergic reaction he had to peanuts prior to entering the hospital, when his mom accidently gave him a snack containing peanuts, stating his lips and throat itch. pt had already received prn Benadryl earlier. pt given prn pain meds. pt stated "where is my Benadryl?", even though we had already gone over when he could have it next, which would be 0630. pt continues to be upset about his medications. As RN leaving room pt using rough language, this RN asked pt to be respectful towards staff. night hospitalist notified about situation of excessive call light use, and frequent request for medications. Orders to hold all prn medications until day hospitalist can re-evaluate.
[2016-06-24] MEDS: HYDROcodone-APAP 5-325 mg Tablet PO PRN (04:47)
[2016-06-24 06:19] LABS: BASOPHILS % (AUTO) 0.2 % (0-3); EOSINOPHILS % (AUTO) 0.4 % (0-5); Mean Corpuscular Hemoglobin 27.1 pg (27.0-35.0); Mean Corpuscular Volume 83.6 fL (81-100); Platelet Count 353 bil/L (150-400)
--- NOTE | 2016-06-24 06:25 | NUR ---
behavior: pt called asking for medications, informed pt of hospitalist orders, that day hospitalist will re-evaluate. pt called this RN " A Fat ugly Bitch", and told this RN to leave his room. RN called pharmacist in charge owner to room, and this RN left room.
--- NOTE | 2016-06-24 06:34 | NUR ---
AMA Pt left AMA shortly after being told narcotics were on hold. Removed own IV. Security called to escort pt off [address]. Pt showed staff both arms to prove he had taken out IV. Yelled "goodbye you fat bitch" as he left. Addendum: 06/24/16 at 0640 by YOSI PEREZ RN Pt also refused to sign AMA paperwork.
--- NOTE | 2016-06-24 07:22 | NUR ---
MICRO: RN notified of positive C-diff result, after pt left AMA. notified of result.
[2016-06-24 07:29] LABS: Magnesium 1.9 mg/dL (1.6-2.6); Phosphorus 3.8 mg/dL (2.5-4.9); Unsaturated Iron Binding 362.9 ug/dL
--- NOTE | 2016-06-24 09:07 | DRSVH ---
PROCEDURE: X-RAY ABDOMEN, ONE VIEW ([id number]) INDICATIONS: ABDOMINAL PAIN TECHNIQUE: One view of the abdomen acquired. COMPARISON: [facility], CT, CT ABD PELVIS WO CON, 06/22/2016, 9:52. FINDINGS: Surgical changes and devices: None. Bowel: Bowel gas pattern is normal. Soft tissues: A few punctate calcific densities are demonstrated in the expected locations of the ki dneys likely corresponding to the calcifications on recent CT but evaluation is limited by overlying bowel loops. Bones: No suspicious bony lesions. IMPRESSION: 1. Small punctate renal calcific densities demonstrated corresponding to the findings on recent CT w ith evaluation limited due to overlying bowel loops. Dictated by: Alonso Santiago M.D. on 06/24/2016 at 9:05 Approved by: Alonso Santiago M.D. on 06/24/2016 at 9:05
--- NOTE | 2016-06-25 00:35 | PCM.DC.MED ---
Discharge Summary Date of Service Jun 24, 2016 Dates of Hospitalization Date of Hospital Admission Jun 22, 2016 at 18:00 Date of Discharge: Jun 24, 2016 Providers: Admitting Physician: Uriel Eldridge MD Primary Care Physician: Zain Attending Physician: Uriel Eldridge MD Diagnosis at Time of Discharge Diagnosis at Time of Discharge Patient left AGAINST MEDICAL ADVICE before definitive diagnosis could be made Consultations Infectious disease and gastroenterology were consulted. Procedures XRay, CTs & MRIs CT ABD PELVIS IMPRESSION: 1. No CT evidence of appendicitis. Source of right lower quadrant pain is not seen. 2. Scattered very small calcifications and faint calcifications involving the collecting system and renal parenchyma bilaterally, but without associated hydronephrosis or hydroureter. Dictated by: Lane Machado M.D. on 06/22/2016 at 10:00 Approved by: Lane Machado M.D. on 06/22/2016 at 10:00 Lab Results Interpretation Result Diagram: 06/22/16 0835 06/22/16 0835 Brief History Patient is a 36 year old male with no relevent past medical history that is presenting with a 4 day history of generalized abdominal pain and nausea/ vomiting. Patient was on a family trip to [place] when he suddenly developed acute abdominal pain with continual vomiting. He attributes this to some food that he ingested that no one else did. He went to the hospital in [place], and all they could offer him was nausea medication and pain medication. Patient continued to be symptomatic the entire trip and was had the symptoms for the next three days. Eventually the vomiting and diarrhea led to occasional blood streaks in the vomitus and streaks of blood in the stool. Patient upon landing came to the hospital for evaluation. Patient was brought in under observation to the hospital service for further evaluation and treatment recommendations. Hospital Course Patient is a 36 year old male with no relevent past medical history that is presenting with acute onset nausea and vomiting with accompanying abdominal pain. Gastroenteritis - Given presentation of symptoms and travel will treat for possible protozoal infection - will continue to adequately hydrate via ns @ 100 ml/hr - will treat with metronidazole 500 mg bid - stool culture and wbc - will monitor for nausea and vomiting dvt ppx contraindicated at this time gi ppx will give Protonx Plan patient has no stool yet to send for studies. I have consulted gastroenterology and their recommendations are to perform endoscopy and colonoscopy. Their help is appreciated. I have consulted infectious diseases patient has just spent several days in [place] before becoming ill Dr. Wagner was kind enough to see the patient and his recommendations are as follows: "IMPRESSION: This is an odd case of a gentleman who spent last week in [facility] with his family. He reports that on the in [place] which also happened to be June 17, he developed the onset of intractable nausea and vomiting associated with severe lower abdominal pain and some diarrhea. Over a period of four days in a [facility] hospital and now one day in our hospital, the patient has continued to have what he describes as severe vomiting which is now sometimes mixed with blood. This vomiting and nausea is only suppressed by antiemetic agents. In addition, he reports severe lower abdominal pain to the point he requires narcotics and is actively campaigning for higher and higher doses of narcotics. This is all occurring in a patient who appears nontoxic at this point and certainly does not look infected. Infectious disease differential diagnosis is a bit indistinct here. The patient's nausea and vomiting sound like Norovirus or some similar agent, but it has persisted now for almost a week which would be quite unusual. The severe abdominal pain also does not go along with typical agents of viral gastroenteritis. The lower abdominal pain could be a sign of a parasitic infection such as Cyclospora or amebiasis, but the patient really does not have much in the way of diarrhea at this point. Shigella, salmonella, Campylobacter and Yersinia could also produce such a picture, but the amount of nausea and vomiting he has, which really outweighs the minimal diarrhea, would not fit well for these organisms. It is also possible, of course, the patient has no infection at all but it seems odd that a 36-year-old, uninfected young man on holiday in [facility] would suddenly develop intractable nausea and vomiting associated with severe lower abdominal pain to the point that he would be admitted to a [facility] hospital for several days and then emergently returned to the [place] RECOMMENDATIONS: 1. I agree completely with the endoscopies planned for tomorrow. 2. As soon as a stool sample presents itself, and given the fact he is getting a gastrointestinal prep for his endoscopy that should not be long, it should be sent for the stool multiplex PCR. 3. We may need additional studies on the patient's stool as we go forward, but I think we will wait a bit and see what is found during the endoscopy or endoscopies planned for tomorrow. 4. Human immunodeficiency virus and hepatitis C are in this young gentleman who reports he has never been tested for either of these problems. 5. Repeat procalcitonin will be checked as well though I certainly do not feel this patient is septic or toxic in any way but high procalcitonin level would, of course, force us to rethink the case." ^^^ Infectious disease and GI consult and help are appreciated and will follow the recommendations. Disposition patient left the hospital AGAINST MEDICAL ADVICE without even signing the "against medical advice" paperwork. Exam Vital Signs (Last) Date Time Temp Pulse Resp B/P Pulse Ox O2 Delivery O2 Flow Rate FiO2 06/23/16 21:16 36.9 66 18 130/81 95 Room Air Exam Patient left AGAINST MEDICAL ADVICE at 6:30 AM this morning before he could be examined. Test 06/22/16 08:35 06/22/16 09:50 06/22/16 10:25 06/23/16 11:07 Lipase 16U/L (13-60) Lactic Acid Level 1.8mmol/L (0.4-2.0) Urine Color Straw (YELLOW) Urine Appearance Hazy (CLEAR,HAZY) Urine pH 6.0 (5.0-8.0) Urine Specific [place] 1.015 (1.003-1.035) Urine Protein Negativemg/dL (NEG,TRACE) Urine Glucose (UA) Negativemg/dL (NEGATIVE) Urine Ketones Negativemg/dL (NEGATIVE) Urine Occult Blood Negative (NEGATIVE) Urine Nitrite Negative (NEGATIVE) Urine Bilirubin Negative (NEGATIVE) Urine Urobilinogen Normalmg/dL (NORMAL) Urine Leukocyte Esterase Negative (NEGATIVE) Urine RBC 0-2/hpf (0-2) Urine WBC 0-5/hpf (0-5) Urine Epithelial Cells Occasional/hpf (NONE-MOD) Urine Crystals None seen (NONE SEEN) Urine Bacteria None/hpf (NONE-FEW) Urine Hyaline Casts None/lpf (NONE) Urine Granular Casts None seen (NONE SEEN) Urine Waxy Casts None seen (NONE SEEN) Urine Red Blood Cell Casts None seen (NONE SEEN) Urine White Blood Cell Casts None seen (NONE SEEN) Urine Mucus None seen (None Seen) Urine Trichomonas None seen (NONE SEEN) Urine Yeast None (NONE SEEN) Urinalysis Comment None Urine Culture Reflexed Not indicated Hold Urine Received (Received) Test 06/24/16 06:00 White Blood Count 4.9th/mm3 (3.8-10.1) Red Blood Count 4.09mil/mm3 (4.40-5.80) Hemoglobin 11.1g/dL (13.8-17.2) Hematocrit 34.2% (41.0-50.0) Mean Corpuscular Volume 83.6fL (81-100) Mean Corpuscular Hemoglobin 27.1pg (27.0-35.0) Mean Corpuscular Hemoglobin Concent 32.5% (32.0-37.0) Red Cell Distribution Width 12.8% (12.3-15.4) Platelet Count 353bil/L (150-400) Neutrophils (%) (Auto) 40.0% (40-74) Lymphocytes (%) (Auto) 48.2% (14-46) Monocytes (%) (Auto) 11.0% (4-12) Eosinophils (%) (Auto) 0.4% (0-5) Basophils (%) (Auto) 0.2% (0-3) Reticulocyte Count,Calculated 1.1% (0.6-2.6) Sodium Level 140mEq/L (134-144) Potassium Level 3.6mEq/L (3.5-5.2) Chloride Level 100mEq/L (97-108) Carbon Dioxide Level 25mmol/L (18-29) Blood Urea Nitrogen 9mg/dL (6-20) Creatinine 0.85mg/dL (0.76-1.27) Estimat Glomerular Filtration Rate 107mL/min (>59) Glucose Level 82mg/dL (60-99) Calcium Level 8.4mg/dL (8.5-10.1) Phosphorus Level 3.8mg/dL (2.5-4.9) Magnesium Level 1.9mg/dL (1.6-2.6) Iron Level 33ug/dL (35-150) Total Iron Binding Capacity 396ug/dL (250-450) Percent Iron Saturation 8%sat (15-50) Unsaturated Iron Binding 362.9ug/dL Ferritin 18ng/mL (30-400) Total Bilirubin 0.3mg/dL (0.0-1.2) Aspartate Amino Transf (AST/SGOT) 11U/L (0-50) Alanine Aminotransferase (ALT/SGPT) 5U/L (0-44) Alkaline Phosphatase 47U/L (25-150) Total Protein 6.1g/dL (6.4-8.4) Albumin 3.8g/dL (3.4-5.0) Procalcitonin < 0.05ng/mL (See Comment) Microbiology Results C DIFF TOXIN A AND B BY PCR Final 06/24/16-656 Organism 1 POS FOR CDIF TOXIN C DIF TOXIN A&B PCR DETECTED TIME CALLED: 654 DATE CALLED: 06/24/16 FLOOR/DOCTOR: RANJIT/ROSHAN Rios CALLED BY: MARYAM PCR testing alone cannot distinquish C. difficile disease from a carrier state, and therefore correlation with clinical findings is required. Discharge Medications Discharge Medications Sertraline HCl (Zoloft) 50 Mg Tablet 50 MG PO BID (Reported) As needed Alprazolam (Alprazolam) 2 Mg Tablet 2 MG PO BID PRN PRN For Anxiety (Reported) Followup Plan Disposition: Patient left the hospital AGAINST MEDICAL ADVICE at 6:30 AM before he could be seen Time spent Patient left the hospital AGAINST MEDICAL ADVICE early this morning. David Singh MD Jun 25, 2016 00:35
== END 2016-06-24 06:30 | disposition left against medical advice (07) ==
LOC: SED 08:06 → MPC 18:00
PROVIDERS: ADMIT Internal Medicine; ATTEND Internal Medicine
DX: K52.9 Noninfective gastroenteritis and colitis, unspecified (principal); R10.9 Unspecified abdominal pain; R11.10 Vomiting, unspecified; Z79.899 Other long term (current) drug therapy
CPT/HCPCS: 36415; 71010; 74000; 74176; 80053; 81000; 82308; 82607; 82728; 82746; 83540; 83550; 83605; 83690; 83735; 84100; 85025; 85045; 87338; 87507; 89055; G0378; G0433; G0472; J1170; J1200; J2060; J2270; J2405; J2930; J3360; J3490; J7030